=== PATIENT | female | born 1975 | race Hispanic/Latino ===

== ENCOUNTER 2023-07-27 09:00 | Inpatient (IN) | payer OTHER ==
[~2023-07-27] VITALS: Ht 167.6 cm; Wt 101.1 kg
[2023-07-27 15:00] LABS: BASOPHILS # (AUTO) 0.04 K/uL (0.00-0.20); BASOPHILS % (AUTO) 0.6 % (0.0-5.0); EOSINOPHILS # (AUTO) 0.24 K/uL (0.00-0.70); EOSINOPHILS % (AUTO) 3.4 % (0.0-8.0); HEMATOCRIT 33.8 % (36-48); IMMATURE GRANULOCYTE ABSOLUTE 0.02 K/uL (0-1); LYMPHOCYTES % (AUTO) 42.2 % (21.0-51.0); MEAN CORPUSCULAR HEMOGLOBIN 21.7 pg (27.0-33.0); MEAN CORPUSCULAR VOLUME 74.8 fL (79-99); MONOCYTES # (AUTO) 0.5 K/uL (0.1-1.0); MONOCYTES % (AUTO) 6.9 % (3.0-13.0); NEUTROPHILS # (AUTO) 3.3 K/uL (1.8-7.7); NEUTROPHILS % (AUTO) 46.6 % (40.0-77.0); PLATELET COUNT (AUTO) 349 K/uL (130-400); RED BLOOD CELL COUNT(AUTO) 4.52 MIL/uL (4.00-5.50); WHITE BLOOD COUNT (AUTO) 7.1 K/uL (4.8-10.8)
[2023-07-27 15:30] LABS: INR 1.04 (0.85-1.15)
[2023-07-27 15:31] LABS: PARTIAL THROMBOPLASTIN TIME 27.2 SEC (26.3-35.5)
[2023-07-27 15:32] LABS: CREATININE 0.7 mg/dL (0.5-1.5); POTASSIUM 4.2 mmol/L (3.5-5.1)
[2023-07-27 15:45] VITALS: BP 164/79; PULSE 66; RESP 16
[2023-07-27] MEDS ORDERED: VITAD50000 PO (15:48)
[2023-07-27] MEDS ORDERED: SEMA1PEN3 SQ (15:48)
[2023-07-27] MEDS ORDERED: DULO60CA64 PO (15:48)
[2023-07-27] MEDS ORDERED: METF-444 PO (15:48)
[2023-07-27] MEDS ORDERED: DULO30CA52 PO (15:48)
[2023-07-31] VITALS (22 sets, daily range): BP systolic 119–163; BP diastolic 67–97; PULSE 60–86; RESP 13–20; O2SAT 99–100
[2023-07-31] MEDS ORDERED: CEFAZOLIN SODIUM 2 GM VIAL ONE (06:21)
[2023-07-31] MEDS ORDERED: LACTATED RINGERS 1000ML 1,000 ML IV ONE (06:21)
[2023-07-31] MEDS ORDERED: CEFAZOLIN SODIUM 1 GM VIAL ONE (06:46)
[2023-07-31] MEDS ORDERED: FENTANYL CITRATE PF 50 MCG/1 ML 5ML AMP IV ONE (06:58)
[2023-07-31] MEDS ORDERED: MIDAZOLAM HCL 1 MG/ML 2ML VIAL ONE (06:58)
[2023-07-31] MEDS ORDERED: PROPOFOL 10 MG/ML 20ML VIAL IV ONE (06:58)
[2023-07-31] MEDS ORDERED: BUPIVACAINE/PF 0.5% 30ML VIAL ONE (07:15)
[2023-07-31] MEDS ORDERED: EPINEPHRINE PF 1MG (1:1,000) 1 MG/ML AMP ONE (07:15)
[2023-07-31] MEDS ORDERED: SUCCINYLCHOLINE 200MG/10ML SYR ONE (07:16)
[2023-07-31] MEDS ORDERED: ROCURONIUM 10MG/1ML SYR 10 MG/ML ML ONE ×2 (07:17→08:03)
[2023-07-31] MEDS ORDERED: ONDANSETRON 4MG INJ ONE (07:20)
[2023-07-31] MEDS ORDERED: KETAMINE 50MG/ML SYRINGE 50 MG/ML DISP.SYRIN ONE (07:21)
[2023-07-31] MEDS ORDERED: MAGNESIUM SULFATE 1 GM/2 ML VIAL ONE (07:22)
[2023-07-31] MEDS ORDERED: SCOPOLAMINE HYDROBROMIDE 1 EACH ADH..PATCH TD ONE (07:25)
[2023-07-31] MEDS ORDERED: ACETAMINOPHEN 1,000 MG/100 ML VIAL IV ONE (07:25)
[2023-07-31] MEDS ORDERED: FAMOTIDINE 20MG VIAL IV ONE (07:25)
[2023-07-31] MEDS ORDERED: DEXAMETHASONE SOD PHOSPHATE 10MG/ML 1ML VIAL ONE (08:13)
[2023-07-31] MEDS ORDERED: HEPARIN 10,000 UNIT/10ML (1,000 UNIT/ML) VIAL ONE (08:16)
[2023-07-31] MEDS ORDERED: METHYLENE BLUE 5 MG/ML AMP ONE (08:16)
[2023-07-31] MEDS ORDERED: HEPARIN 5,000 UNIT VIAL SQ ONE (08:18)
[2023-07-31] MEDS ORDERED: METHYLENE BLUE 5 MG/ML AMP IJ ONE (08:20)
[2023-07-31] MEDS ORDERED: BUPIVACAINE/EPI/PF 0.5% 30ML VIAL IJ ONE (09:00)
[2023-07-31] MEDS ORDERED: NEOSTIGMINE 5MG/5ML SYR IV ONE (09:34)
[2023-07-31] MEDS ORDERED: GLYCOPYRROLATE 1 MG/5 ML SYRINGE ONE (09:34)
[2023-07-31] MEDS ORDERED: FENTANYL CITRATE PF 50 MCG/1 ML 2ML VIAL ONE (09:45)
[2023-07-31] MEDS ORDERED: MORPHINE PCA 50MG/50ML NS IV SCH (11:30)
[2023-07-31] MEDS ORDERED: PROMETHAZINE HCL 25 MG/ML 1ML AMPULE IM PRN (11:30)
[2023-07-31] MEDS: INSULIN HUMULIN R 100 UNIT/ML 3ML SQ SCH ×3 (11:30→20:22)
[2023-07-31] MEDS ORDERED: MORPHINE 2 MG SYG IVP PRN ×2 (11:30)
[2023-07-31] MEDS ORDERED: MORPHINE 4 MG SYG IV PRN (11:30)
[2023-07-31] MEDS: LACTATED RINGERS 1000ML 1,000 ML IV SCH ×2 (11:44→20:15)
[2023-07-31] MEDS ORDERED: Cholecalciferol (Vitamin D3) 50,000 UNITS PO SCH (16:30)
[2023-07-31] MEDS: FAMOTIDINE 20MG VIAL IV SCH (20:15)
[2023-07-31] MEDS: HEPARIN 5,000 UNIT VIAL SQ SCH (20:21)
[2023-08-01] VITALS: BP 136/84; PULSE 68; RESP 18
[2023-08-01] MEDS: LACTATED RINGERS 1000ML 1,000 ML IV SCH ×2 (03:01→09:46)
[2023-08-01 04:00] VITALS: BP 148/90; PULSE 67; RESP 19
[2023-08-01] MEDS: INSULIN HUMULIN R 100 UNIT/ML 3ML SQ SCH ×2 (06:33→10:37)
[2023-08-01 08:00] VITALS: BP 151/91; PULSE 64; RESP 18; O2SAT 98
[2023-08-01] MEDS: FAMOTIDINE 20MG VIAL IV SCH (08:31)
[2023-08-01] MEDS: HEPARIN 5,000 UNIT VIAL SQ SCH (08:49)
[2023-08-01] MEDS ORDERED: NON-FORMULARY MEDICATION 1 EACH (Duloxetine HCl 60 MG) PO SCH (09:00)
[2023-08-01] MEDS ORDERED: METFORMIN HCL 500 MG TABLET PO SCH (09:00)
[2023-08-01] MEDS ORDERED: DULOXETINE HCL 30 MG CAP PO SCH (09:00)
[2023-08-01 12:00] VITALS: BP 155/88; PULSE 62; RESP 19
[2023-08-01] MEDS ORDERED: LACTATED RINGERS 1000ML IV SCH (12:00)
== END 2023-08-01 15:15 | disposition home or self-care (01) | DRG 621 ==
LOC: DAHIP 07-31 06:11 → 4AH 07-31 11:15
PROVIDERS: ADMIT Surgery; ATTEND Surgery
PROC: 0DB64Z3 Excision of Stomach, Percutaneous Endoscopic Approach, Vertical (ICD-10-PCS; principal; 2023-07-31 07:30)
DX: E66.01 Morbid (severe) obesity due to excess calories (principal); E88.81 Metabolic syndrome and other insulin resistance; Z68.36 Body mass index [BMI] 36.0-36.9, adult
CPT/HCPCS: 36415; 80048; 81025; 82948; 84703; 85025; 85610; 85730; G0378; J0171; J0330; J0690; J1100; J1644; J2250; J2405; J2550; J2704; J2710; J3010; J3475; J3490; J7120; Q9968; A4215; A4221; A4222; A4223; A4600; A4663; A6260